=== PATIENT | female | born 1950 | race Caucasian/White ===

== ENCOUNTER → 2021-03-23 | Outpatient (CLI) | payer MEDICARE ==
[~2021-03-23] VITALS: Ht 149.9 cm; Wt 74.4 kg
== END ==
LOC: OPSV 10:29
DX: E05.00 Thyrotoxicosis with diffuse goiter without thyrotoxic crisis or storm (principal)
CPT/HCPCS: 96365; 96366; J3241

== ENCOUNTER → 2021-04-13 | Outpatient (CLI) | payer MEDICARE ==
[~2021-04-13] VITALS: Ht 149.9 cm; Wt 74.4 kg
== END ==
LOC: OPSV 11:00
DX: E05.00 Thyrotoxicosis with diffuse goiter without thyrotoxic crisis or storm (principal)
CPT/HCPCS: 96365; J3241

== ENCOUNTER → 2021-05-04 | Outpatient (CLI) | payer MEDICARE ==
[~2021-05-04] VITALS: Ht 149.9 cm; Wt 74.4 kg
== END ==
LOC: OPSV 11:00
DX: E05.00 Thyrotoxicosis with diffuse goiter without thyrotoxic crisis or storm (principal)
CPT/HCPCS: 96365; J3241

== ENCOUNTER → 2021-05-25 | Outpatient (CLI) | payer MEDICARE ==
[~2021-05-25] VITALS: Ht 149.9 cm; Wt 74.4 kg
== END ==
LOC: OPSV 11:00
DX: E05.00 Thyrotoxicosis with diffuse goiter without thyrotoxic crisis or storm (principal)
CPT/HCPCS: 96365; J3241

== ENCOUNTER → 2021-06-15 | Outpatient (CLI) | payer MEDICARE, OTHER | LOC: OPSV 13:00 | DX: E05.00 Thyrotoxicosis with diffuse goiter without thyrotoxic crisis or storm (principal) | CPT/HCPCS: 96365; J3241 ==

== ENCOUNTER → 2021-07-06 | Outpatient (CLI) | payer MEDICARE, OTHER ==
[~2021-07-06] VITALS: Ht 149.9 cm; Wt 74.4 kg
== END ==
LOC: OPSV 10:59
DX: E05.00 Thyrotoxicosis with diffuse goiter without thyrotoxic crisis or storm (principal)
CPT/HCPCS: 96365; J3241

== ENCOUNTER → 2021-07-27 | Outpatient (CLI) | payer MEDICARE, OTHER ==
[~2021-07-27] VITALS: Ht 149.9 cm; Wt 74.4 kg
== END ==
LOC: OPSV 11:32
DX: H05.241 Constant exophthalmos, right eye (principal)
CPT/HCPCS: 96365; J3241

== ENCOUNTER → 2021-10-06 | Outpatient (CLI) | payer MEDICARE | LOC: HEART 5 14:46 | DX: Z87.891 Personal history of nicotine dependence (principal) | CPT/HCPCS: 94060; 94729 ==